=== PATIENT | male | born 1980 | race Caucasian/White ===

== ENCOUNTER 2019-10-08 17:38 | Emergency (ER) | payer BC ==
[2019-10-08 17:43] VITALS: BP 146/90
== END 2019-10-08 18:39 | disposition home or self-care (01) ==
LOC: ED 17:38
DX: S61.211A Laceration without foreign body of left index finger without damage to nail, initial encounter (principal); W26.0XXA Contact with knife, initial encounter; Y92.009 Unspecified place in unspecified non-institutional (private) residence as the place of occurrence of the external cause